=== PATIENT | female | born 1995 | race Two or more races ===

== ENCOUNTER 2017-10-08 13:40 | Emergency (ER) | payer SELFPAY ==
[~2017-10-08] VITALS: Ht 160 cm; Wt 49.9 kg
[2017-10-08 14:43] VITALS: BP 112/70
--- NOTE | 2017-10-08 14:43 | NUR ---
Patient discharged to home in stable condition. Written and verbal after care instructions given. Patient verbalizes understanding of instruction.
== END 2017-10-08 14:44 | disposition home or self-care (01) ==
LOC: ER 13:41
DX: R55 Syncope and collapse (principal)
CPT/HCPCS: 82962; 84703; 93005; 99285; A4606; Z7610